=== PATIENT | female | born 2000 | race Caucasian/White ===

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

== ENCOUNTER 2022-01-30 06:00 | Outpatient (RCR) | payer BC, SELFPAY | END 2022-02-11 23:59 | disposition home or self-care (01) | LOC: SPT 06:00 | PROVIDERS: PCP Nurse Practitioner Family; Visit Provider Internal Medicine Rheumatology | DX: M41.9 Scoliosis, unspecified (principal); M54.9 Dorsalgia, unspecified; G89.29 Other chronic pain; M19.90 Unspecified osteoarthritis, unspecified site | CPT/HCPCS: 97110; 97161 ==

== ENCOUNTER 2022-02-12 06:00 | Outpatient (RCR) | payer BC, SELFPAY | END 2022-03-03 23:59 | disposition home or self-care (01) | LOC: SPT 06:00 | PROVIDERS: PCP Nurse Practitioner Family; Visit Provider Internal Medicine Rheumatology | DX: M41.9 Scoliosis, unspecified (principal); M54.9 Dorsalgia, unspecified; G89.29 Other chronic pain; M19.90 Unspecified osteoarthritis, unspecified site | CPT/HCPCS: 97110 ==

== ENCOUNTER 2022-12-20 18:07 | Outpatient (CLI) | payer SELFPAY | END 2022-12-20 18:08 | disposition home or self-care (01) | PROVIDERS: Visit Provider Emergency Medicine | DX: K80.50 Calculus of bile duct without cholangitis or cholecystitis without obstruction (principal) | CPT/HCPCS: 87045; 87427; 87449 ==

== ENCOUNTER 2022-12-21 14:30 | Emergency (ER) | payer SELFPAY ==
[2022-12-21 14:36] VITALS: BP 139/79; PULSE 86; RESP 17; TEMP 36.6; O2SAT 100; BMI 36.2
--- NOTE | 2022-12-21 14:48 | W.ED.ABDPA2 ---
HPI - Abdominal Pain General: Chief Complaint: Abdominal Pain Stated Complaint: right sided abdominal pain Time Seen by Provider: 12/21/22 14:42 Source: patient Mode of arrival: ambulatory Limitations: no limitations History of Present Illness: Patient is a 22-year-old female presents to ED today with complaint of right upper quadrant abdominal pain. Patient states approximately 6 days ago she thought she had a GI bug she was feeling nauseous and had multiple episodes of vomiting. She states this has improved but over the past 2 days noticed light-colored stools which concerned her. She reportedly was seen at a walk-in clinic yesterday and had lab work ordered but states she was not able to complete this. She states around 7 AM this morning she noticed right upper quadrant abdominal pain. He has not had any fevers. She is no longer vomiting. She has not noticed any yellowing to her skin or eyes. She states she does have a family history of gallbladder disease. Denies flank pain or urinary symptoms. MD elicited complaint: abdominal pain Pertinent past history: none Onset (ago): hour(s) Pain Consistency: constant Location: RUQ Severity: moderate Quality: sharp Radiation: back Migration to: no migration Exacerbating factors: nothing Relieving factors: nothing Associated Symptoms: Reports nausea and vomiting; Denies chills, constipation, GI cramping, diarrhea, dysuria, fever(s), hematochezia, hematemesis and melena Related Data: Patient : No Review of Systems Const: Denies: fever(s), chills, body aches, fatigue or malaise Card: Denies: chest pain Resp: Denies: dyspnea GI: Reports: abdominal pain, nausea, vomiting and white/light colored stool; Denies: hematemesis, diarrhea, constipation, GI cramping, rectal swelling, rectal itching, hematochezia, melena or mucus in stool : Denies: flank pain, difficulty voiding, dysuria, urinary frequency, urinary urgency or urinary hesitancy Musc: Denies: neck pain, back pain, extremity pain or joint pain Skin/Breast: Denies: rash Neuro: Denies: headache(s), numbness in extremities, weakness in extremities, sensory changes or dizziness PFS ED PFSH: Medical History Allergies Chronic low back pain DJD (degenerative joint disease) of thoracic spine Dysthymic disorder Elevated C-reactive protein Inflammatory back pain Joint pain Panic disorder [episodic paroxysmal anxiety] Primary osteoarthritis of knees, bilateral Scoliosis Surgical History History of placement of ear tubes Family History Grandmother Hypercholesteremia Other Diabetes Hypertension Stroke Denies family history of Colon cancer Ovarian cancer Heart disease Breast cancer Uterine cancer Thyroid disease Social History Smoking and tobacco status: never smoked Second hand smoke exposure: Yes Female Reproductive History: Spontaneous abortions: No Physical Exam Const: COMMON NORMALS: no acute distress, patient oriented x3, no limitations, alert and well nourished GENERAL APPEARANCE: cooperative NUTRITIONAL APPEARANCE: obese ORIENTATION/CONSCIOUSNESS: Yes awake, Yes oriented to place and Yes oriented to time HENMT: COMMON NORMALS: normocephalic and atraumatic HEAD & SCALP: normocephalic and atraumatic Eye: COMMON NORMALS: no scleral icterus Neck/C-Spine: COMMON NORMALS: full ROM, no lymphadenopathy, supple and no meningeal signs Chest: COMMONS NORMALS: normal inspection of the chest Resp: COMMON NORMALS: normal respiratory effort and clear to auscultation bilaterally AUSCULTATION: clear to auscultation bilaterally Cardio: COMMON NORMALS: regular rate and regular rhythm RATE: regular rate RHYTHM: regular rhythm GI: COMMON NORMALS: Normal to inspection, nondistended, normoactive bowel sounds present, Soft to palpation, No hepatosplenomegaly present and no masses INSPECTION: Yes normal to inspection AUSCULTATION: Yes normoactive bowel sounds PALPATION: Yes Soft to palpation, Yes Tenderness to palpation present (GI) Details: RUQ, No Guarding due to palpation present (GI), No Rigid due to palpation and Yes No hepatosplenomegaly present : COMMON NORMALS: Yes no CVA tenderness BLADDER/KIDNEY EXAM: Yes no CVA tenderness Back/Pelvis: COMMON NORMALS: no CVA tenderness and thoracic and lumbar spine normal to inspection Extremity: COMMON NORMALS: normal to inspection GENERAL: Yes normal exam except as noted Neuro: TERESA COMA SCALE: document GCS findings [place] coma scale eye opening: Spontaneous [place] coma scale verbal response: Orientated [place] coma scale motor response: Obey commands [place] coma scale total score: 15 COMMON NORMALS: patient oriented x3, moves all extremities, no focal motor deficits and no sensory deficits noted SENSORIUM/ORIENTATION: Yes alert, Yes oriented to place and Yes oriented to time MENINGEAL SIGNS: Yes no meningeal signs Skin: COMMON NORMALS: no rashes or lesions noted GENERAL SKIN EXAM: no rashes or lesions noted Course Vital Signs: Vital signs: Vital Signs Temperature 97.9 F 12/21/22 14:36 Pulse Rate 86 12/21/22 14:36 Respiratory Rate 17 12/21/22 14:36 Blood Pressure 139/79 12/21/22 14:36 Pulse Oximetry 100 12/21/22 14:36 Oxygen Delivery Me thod Room Air 12/21/22 14:36 MDM - Abdominal Pain Medical Decision Making Patient arrives with stable vital signs. Her blood work shows a normal white count. Her LFTs including her T. bili are normal. Lipase is normal. Mildly low hypokalemia at 3.2. She was given supplementation for this. Her gallbladder ultrasound is normal. Mild hepatomegaly. At this time she is stable to follow-up with her primary care provider on as scheduled. She states she did get some relief from her GI cocktail. She states she takes famotidine twice daily. Recommend she discuss with them about potentially adding a PPI and/or outpatient HIDA scan if they feel indicated. Return ED precautions given. Lab Data 12/21/22 15:24 12/21/22 15:24 Labs/Radiology: Laboratory Results WBC 6.90 10^3/uL (4.5-13.0) 12/21/22 15:24 RBC 4.17 10^6/uL (3.85-5.65) 12/21/22 15:24 Hgb 12.80 g/dL (12.4-14.8) 12/21/22 15:24 Hct 37.7 % (36-47) 12/21/22 15:24 MCV 90.4 fl (85-98) 12/21/22 15:24 MCH 30.7 pg (27-33) 12/21/22 15:24 MCHC 34.0 g/dL (30-55) 12/21/22 15:24 RDW 11.9 % (12.1-15.1) L 12/21/22 15:24 Plt Count 246 10^3/cmm (157-399) 12/21/22 15: MPV 10.0 fL (7.4-10.4) 12/21/22 15:24 Neut % (Auto) 59.8 % 12/21/22 15:24 Lymph % (Auto) 31.7 % 12/21/22 15:24 [place] % (Auto) 6.5 % 12/21/22 15:24 Eos % (Auto) 1.3 % 12/21/22 15:24 Baso % (Auto) 0.3 % 12/21/22:24 Neut # (Auto) 4.12 10^3/uL (1.8-8.0) 12/21/22:24 Lymph # (Auto) 2.2 10^3/uL (1.5-6.5) 12/21/22:24 [place] # (Auto) 0.5 10^3/uL (0.2-0.9) 12/21/22:24 Eos # (Auto) 0.1 10^3/uL (0.0-0.8) 12/21/22 15:24 Baso # (Auto) 0.0 10^3/uL (0.0-0.1) 12/21/22 15:24 Nucleated RBC % (auto) 0 % 12/21/22 15: Nucleated RBCs # 0.0 /100WBC 12/21/22 15:24 Sodium 137 mmol/L (136-145) 12/21/22 15:24 Potassium 3.2 mmol/L (3.5-5.1) L 12/21/22 15:24 Chloride 103 mmol/L (98-107) 12/21/22 15:24 Carbon Dioxide 24 mmol/L (22-29) 12/21/22 15:24 Anion Gap 13.2 (5-19) 12/21/22 15:24 BUN 7 mg/dL (6-20) 12/21/22 15:24 Creatinine 0.6 mg/dL (0.5-0.9) 12/21/22 15:24 GFR Calculation 127.5 mL/min (90-130) 12/21/22 15:24 Glucose 83 mg/dL (65-115) 12/21/22 15:24 Calculated Osmolality 281 mOsm/kg (285-295) L 12/21/22 15:24 Calcium 9.4 mg/dL (8.5-10.5) 12/21/22 15:24 Total Bilirubin 0.2 mg/dL (0.15-1.2) 12/21/22 15:24 AST 19 U/L (0-32) 12/21/22 15:24 ALT 28 U/L (0-33) 12/21/22 15:24 Alkaline Phosphatase 70 U/L (35-105) 12/21/22 15:24 Total Protein 6.8 g/dL (6.6-8.7) 12/21/22 15:24 Albumin 4.4 g/dL (3.5-5.2) 12/21/22 15:24 Globulin 2.4 g/dL (1.3-4.6) 12/21/22 15:24 Lipase 31 U/L (13-60) 12/21/22 15:24 HCG, Qual Negative (Negative) 12/21/22 15:24 Urine Color Yellow (Yellow) 12/21/22 16:09 Urine Appearance Clear (CLEAR) 12/21/22 16:09 Urine pH 5 (5-7) 12/21/22 16:09 Ur Specific [place] 1.010 (1.005-1.030) 12/21/22 16:09 Urine Protein Neg (Negative) 12/21/22 16:09 Urine Glucose (UA) Norm (Normal) 12/21/22 16:09 Urine Ketones Negative (Negative) 12/21/22 16:09 Urine Blood Neg (Negative) 12/21/22 16:09 Urine Nitrate Negative (Negative) 12/21/22 16:09 Urine Bilirubin Neg (Negative) 12/21/22 16:09 Urine Urobilinogen Norm mg/dL (Negative) 12/21/22 16:09 Ur Leukocyte Esterase Negative (Negative) 12/21/22 16:09 All radiology interpretation(s) finalized by discharge Discharge Plan Discharge Patient Disposition: Home Clinical Impression: Abdominal pain, RUQ Condition: Stable Prescriptions: No Action famotidine 20 mg tablet 20 mg PO BID Aviane 0.1-20 mg-mcg tablet 1 tab PO QAM spironolactone 25 mg tablet 25 mg PO QAM Discharge Orders: Discharge ED (Routine); Ordered 12/21/22 Ordered By: Lynsey Rapp Patient Instructions: Abdominal Pain (ED) Activity Restrictions/Additional Instructions: As we discussed please follow-up with your primary care provider on for further evaluation. This may include adding something else to your famotidine and/or HIDA scan imaging for further evaluation of your right upper quadrant abdominal pain. They may opt to treat conservatively with a watch and wait approach if symptoms are improving. Your blood work today was reassuring. You need to return to the emergency department for severe abdominal pain, repetitive episodes of vomiting, fevers, yellowing to your skin or eyes, or generally feeling worse or unwell, or any other concerns you may have. I hope you begin to feel better soon. Coding Level of Care Code ED Senior Maintenance Technician for Jhonny Newman
--- NOTE | 2022-12-21 15:11 | US_ITS ---
WS: [id number] RIGHT UPPER QUADRANT ULTRASOUND HISTORY: RUQ pain COMPARISON: None available. Liver: 18.2 cm in length. Liver is slightly enlarged. No mass or hepatic steatosis. Normal bile ducts . Portal Vein: Normal hepatopetal flow with monophasic waveform. Gallbladder: Normally distended gallbladder with no stones or wall thickening. CBD: 0.3 cm Pancreas: Normal size and echogenicity. Right kidney: 10.4 cm in length. Normal size and echogenicity. No hydronephrosis or mass. Aorta and IVC: Unremarkable abdominal aorta and IVC. No ascites. IMPRESSION: 1. Mild hepatomegaly. 2. Otherwise RIGHT upper quadrant ultrasound is negative.
[2022-12-21 15:28] LABS: Basophils % 0.3 %; Eosinophils # 0.1 10^3/uL (0.0-0.8); Eosinophils % 1.3 %; Hematocrit 37.7 % (36-47); Lymphocytes # 2.2 10^3/uL (1.5-6.5); Lymphocytes % 31.7 %; Mean Corpuscular Hemoglobin 30.7 pg (27-33); Mean Corpuscular Volume 90.4 fl (85-98); Monocytes # 0.5 10^3/uL (0.2-0.9); Monocytes % 6.5 %; Neutrophils # 4.12 10^3/uL (1.8-8.0); Neutrophils % 59.8 %; Nucleated Red Blood Cells % 0 %; Platelet Count 246 10^3/cmm (157-399); Red Blood Count 4.17 10^6/uL (3.85-5.65); Red Cell Distribution Width 11.9 % (12.1-15.1)
[2022-12-21 15:47] LABS: Alanine Aminotransferase 28 U/L (0-33); Albumin Level 4.4 g/dL (3.5-5.2); Alkaline Phosphatase 70 U/L (35-105); Anion Gap 13.2 (5-19); Aspartate Amino Transferase 19 U/L (0-32); Blood Urea Nitrogen 7 mg/dL (6-20); Calcium 9.4 mg/dL (8.5-10.5); Carbon Dioxide 24 mmol/L (22-29); Chloride 103 mmol/L (98-107); Globulin 2.4 g/dL (1.3-4.6); Glomerular Filtration Rate 127.5 mL/min (90-130); Glucose 83 mg/dL (65-115); Lipase 31 U/L (13-60); Osmolality Calculated 281 mOsm/kg (285-295); Potassium 3.2 mmol/L (3.5-5.1); Sodium 137 mmol/L (136-145); Total Bilirubin 0.2 mg/dL (0.15-1.2); Total Protein 6.8 g/dL (6.6-8.7)
[2022-12-21 15:57] LABS: HCG, Serum Qual Negative (Negative)
[2022-12-21 16:15] LABS: Add Urine Microscopic? NO; Charge for UA Resulting for Rev
[2022-12-21] MEDS: lidocaine 2% viscous 15 ML, aluminum-mag hydrox-simethicon 30 ML, sucralfate oral liq 1 GM PO (16:16)
[2022-12-21 16:31] LABS: Urine Appearance Clear (CLEAR); Urine Color Yellow (Yellow)
[2022-12-21 16:32] LABS: Bilirubin Urine Neg (Negative); Blood Urine Neg (Negative); Glucose Urine UA Norm (Normal); Ketones Urine Negative (Negative); Leukocyte Esterase Urine Negative (Negative); Nitrate Urine Negative (Negative); Protein Urine Neg (Negative); Urobilinogen Urine Norm (Negative); pH Urine 5 (5-7)
[2022-12-21] MEDS: potassium chloride ER 20 mEq Tablet 40 MEQ PO (16:37)
--- NOTE | 2022-12-21 16:41 | PC.NURSE ---
Patient states that her pain is better after the GI cocktail, she is maybe at a 2 out of 10 now.
== END 2022-12-21 16:59 | disposition home or self-care (01) ==
PROVIDERS: Emergency Medicine; Emergency Provider Physician Assistant
DX: R10.11 Right upper quadrant pain (principal); Z77.22 Contact with and (suspected) exposure to environmental tobacco smoke (acute) (chronic)
CPT/HCPCS: 36415; 76705; 80053; 81003; 83690; 84703; 85025; 99284

== ENCOUNTER → 2023-01-14 14:11 | Outpatient (BNVA) | payer SELFPAY | PROVIDERS: Visit Provider Nurse Practitioner Family | DX: E87.6 Hypokalemia (principal) | CPT/HCPCS: 80048 ==

== ENCOUNTER → 2023-05-26 14:43 | Outpatient (BNVA) | payer BC, SELFPAY | PROVIDERS: Visit Provider Nurse Practitioner Women's Health | DX: E28.2 Polycystic ovarian syndrome (principal) | CPT/HCPCS: 83036; 83525; 84146; 84402; 84439; 84443; 84481 ==

== ENCOUNTER 2023-07-05 08:33 | Emergency (ER) | payer OTHER, SELFPAY ==
[2023-07-05 08:37] VITALS: BP 121/73; PULSE 83; RESP 17; TEMP 36.7; O2SAT 100; BMI 35.9
--- NOTE | 2023-07-05 08:45 | ECG_ITS ---
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 Measurements Intervals [place] Rate: 78 P: 56 VT: 153 QRS: 70 QRSD: 98 T: 39 QT: 391 QTc: 447 Interpretive Statements SINUS RHYTHM No previous ECG available for comparison Electronically Signed On 07-05-2023 15:02:59 CDT by Steve Thurman M.D. [id number] f
--- NOTE | 2023-07-05 08:45 | XR_ITS ---
WS: [id number] PORTABLE CHEST HISTORY: dyspnea/cough COMPARISON: None available. Lungs are clear and well expanded. No pleural effusion or pneumothorax. Cardiac size: Normal. Mediastinum/Aorta: Normal mediastinum. No osseous abnormality seen. IMPRESSION: Unremarkable portable chest.
[2023-07-05 08:51] VITALS: BP 121/73; PULSE 83; O2SAT 98
[2023-07-05] MEDS: lidocaine 2% viscous 15 ML, aluminum-mag hydrox-simethicon 30 ML, sucralfate oral liq 1 GM PO (09:04)
--- NOTE | 2023-07-05 09:23 | W.ED.CHESTPA ---
HPI - Chest Pain General: Chief Complaint: Chest Pain Stated Complaint: chest pain Time Seen by Provider: 07/05/23 08:44 Source: patient Mode of arrival: ambulatory History of Present Illness: 22-year-old female presents emergency room complaining of chest discomfort and burning discomfort in her upper left chest slightly more noticeable when she takes a deep breath but somewhat persistent seems to be somewhat positional and that if she in a particular position it is less uncomfortable she has had some GI symptoms earlier this week with diarrhea and bloating that has persisted. No shortness of breath no cough no hemoptysis no history of arrhythmias or DVT or PE. No history of any early cardiac disease. MD complaint: chest pain Onset (ago): hour(s) Timing of current episode: episodic Onset: during rest Pain location: left chest Pain radiation: none Relieving factors: other (position) Exacerbating factors: palpation Associated symptoms: Deny abdominal pain, diaphoresis, dyspnea, fever(s), leg edema, nausea, palpitations, sense of impending doom, syncope or vomiting Treatment prior to arrival: none Review of Systems Const: Denies: fever(s) or diaphoresis Card: Reports: chest pain; Denies: palpitations or syncope Resp: Denies: dyspnea GI: Denies: abdominal pain, nausea or vomiting : Denies: dysuria, urinary frequency or urinary urgency Musc: Denies: neck pain or back pain Skin/Breast: Denies: rash PFSH ED PFSH: Medical History Chronic low back pain Scoliosis DJD (degenerative joint disease) of thoracic spine Allergies Joint pain Elevated C-reactive protein Primary osteoarthritis of knees, bilateral Inflammatory back pain Panic disorder [episodic paroxysmal anxiety] Dysthymic disorder Surgical History History of placement of ear tubes Family History Grandmother Hypercholesteremia Other Diabetes Hypertension Stroke Denies family history of Colon cancer Ovarian cancer Heart disease Breast cancer Uterine cancer Thyroid disease Social History Smoking and tobacco/nicotine status: never used tobacco/nicotine Second hand smoke exposure: Yes Alcohol intake: never Substance/Drug Use: current Substance/Drug use frequency: few times a week Female Reproductive History: Date of last menstrual period: 06/21/23 Spontaneous abortions: No Physical Exam Const: GENERAL APPEARANCE: cooperative and comfortable ORIENTATION/CONSCIOUSNESS: Yes awake, Yes oriented to person, Yes oriented to place and Yes oriented to time HENMT: COMMON NORMALS: normocephalic, atraumatic and hearing grossly normal bilaterally HEAD & SCALP: normocephalic and atraumatic Chest: OTHER: Pain with palpation of the left upper chest parasternal Resp: COMMON NORMALS: normal respiratory effort, No retractions, No use of accessory muscles and clear to auscultation bilaterally AUSCULTATION: clear to auscultation bilaterally Cardio: COMMON NORMALS: regular rate, regular rhythm and No murmurs present (Cardio) RATE: regular rate RHYTHM: regular rhythm GI: COMMON NORMALS: Soft to palpation and No hepatosplenomegaly present AUSCULTATION: Yes normoactive bowel sounds PALPATION: Yes Soft to palpation, No Tenderness to palpation present (GI), No Guarding due to palpation present (GI) and Yes No hepatosplenomegaly present Extremity: COMMON NORMALS: normal to inspection, capillary refill normal, no clubbing, cyanosis or edema, no calf tenderness and no pedal edema Neuro: SENSORIUM/ORIENTATION: Yes oriented to person, Yes oriented to place and Yes oriented to time Skin: COMMON NORMALS: no rashes or lesions noted GENERAL SKIN EXAM: no rashes or lesions noted Course Vital Signs: Vital signs: Vital Signs Temperature 98.1 F 07/05/23 08:37 Pulse Rate 66 07/05/23 12:13 Respiratory Rate 17 07/05/23 08:37 Blood Pressure 113/60 07/05/23 12:13 Pulse Oximetry 99 07/05/23 12:13 Oxygen Delivery Me thod Room Air 07/05/23 12:13 MDM - Chest Pain Medical Decision Making Labs and imaging reviewed EKG did not show any acute ST changes normal sinus rhythm. Reviewed as found in the chart. Chest x-ray normal vital signs of normal patient bradycardic not been hypoxic no sign of pneumonia or pneumothorax D-dimer undetectable given her vitals history of symptoms very low suspicion of PE. Suspect this more musculoskeletal or pleuritic in nature patient given diclofenac promethazine use. Follow-up as needed Medical Records I reviewed the patient's medical records. Lab Data I reviewed the patient's lab results. 07/05/23 09:16 07/05/23 09:16 Laboratory Results WBC 6.07 10^3/uL (4.5-13.0) 07/05/23 09:16 RBC 4.73 10^6/uL (3.85-5.65) 07/05/23 09:16 Hgb 14.50 g/dL (12.4-14.8) 07/05/23 09:16 Hct 42.7 % (36-47) 07/05/23 09:16 MCV 90.3 fl (85-98) 07/05/23 09:16 MCH 30.7 pg (27-33) 07/05/23 09:16 MCHC 34.0 g/dL (30-55) 07/05/23 09:16 RDW 11.5 % (12.1-15.1) L 07/05/23 09:16 Plt Count 300 10^3/cmm (157-399) 07/05/23 09:16 MPV 10.0 fL (7.4-10.4) 07/05/23 09:16 Neut % (Auto) 64.3 % 07/05/23 09:16 Lymph % (Auto) 27.7 % 07/05/23 09:16 [place] % (Auto) 6.3 % 07/05/23 09:16 Eos % (Auto) 0.7 % 07/05/23 09:16 Baso % (Auto) 0.3 % 07/05/23 09:16 Neut # (Auto) 3.91 10^3/uL (1.8-8.0) 07/05/23 09:16 Lymph # (Auto) 1.7 10^3/uL (1.5-6.5) 07/05/23 09:16 [place] # (Auto) 0.4 10^3/uL (0.2-0.9) 07/05/23 09:16 Eos # (Auto) 0.0 10^3/uL (0.0-0.8) 07/05/23 09:16 Baso # (Auto) 0.0 10^3/uL (0.0-0.1) 07/05/23 09:16 Nucleated RBC % (auto) 0 % 07/05/23 09:16 Nucleated RBCs # 0.0 /100WBC 07/05/23 09:16 D-Dimer <= 0.27 ug/mLFEU (0-0.59) 07/05/23 09:16 Sodium 137 mmol/L (136-145) 07/05/23 09:16 Potassium 4.7 mmol/L (3.5-5.1) 07/05/23 09:16 Chloride 103 mmol/L (98-107) 07/05/23 09:16 Carbon Dioxide 23 mmol/L (22-29) 07/05/23 09:16 Anion Gap 15.7 (5-19) 07/05/23 09:16 BUN 7 mg/dL (6-20) 07/05/23 09:16 Creatinine 0.6 mg/dL (0.5-0.9) 07/05/23 09:16 GFR Calculation 127.5 mL/min (90-130) 07/05/23 09:16 Glucose 95 mg/dL (65-115) 07/05/23 09:16 Calculated Osmolality 282 mOsm/kg (285-295) L 07/05/23 09:16 Calcium 9.9 mg/dL (8.5-10.5) 07/05/23 09:16 Total Bilirubin 0.3 mg/dL (0.15-1.2) 07/05/23 09:16 AST 19 U/L (0-32) 07/05/23 09:16 ALT 27 U/L (0-33) 07/05/23 09:16 Alkaline Phosphatase 71 U/L (35-105) 07/05/23 09:16 Troponin T Baseline < 6 ng/L (0-10) 07/05/23 09:16 Troponin T 120 Minute 6.00 ng/L (0-10) 07/05/23 11:12 Delta Troponin T 0.05860 ABS# (0-10) 07/05/23 11:12 Total Protein 7.7 g/dL (6.6-8.7) 07/05/23 09:16 Albumin 4.5 g/dL (3.5-5.2) 07/05/23 09:16 Globulin 3.2 g/dL (1.3-4.6) 07/05/23 09:16 All radiology interpretation(s) finalized by discharge Discharge Plan Discharge Patient Disposition: Home Clinical Impression: Atypical chest pain Condition: Stable Prescriptions: New promethazine 25 mg tablet 25 mg PO Q6H PRN (Reason: nausea and vomiting) Qty: 20 0RF diclofenac sodium 75 mg tablet,delayed release (DR/EC) 75 mg PO Q12H PRN (Reason: pain) Qty: 20 0RF No Action drospirenone-ethinyl estradiol [Erna (28)] 3-0.03 mg tablet 1 tab PO DAILY Qty: 28 2RF Discharge Orders: Discharge ED (Routine); Ordered 07/05/23 Ordered By: Feliz Hill Discharge Diet: Usual diet Discharge Activity: Increase activity as tolerated Patient Instructions: Opioid Safety, Pain Management Activity Restrictions/Additional Instructions: Thank you for choosing [facility] for your healthcare needs today. Please realize this is an emergency room and that we are providing you with a medical screening exam and this may not be complete and all inclusive of all the testing and or work up that you may need to determine your ailment or severity of your illness. It is very important that you follow up as instructed or that you return to the Emergency Department should you have concerns or if your condition changes or worsens in any way. You were seen today for report of chest discomfort. Your EKGs and cardiac enzymes were negative. There is no sign of this being a cardiac related issue. A screening for pulmonary embolism was also negative as well as your vitals not being suggestive of pulmonary embolism. There is no sign of pneumonia rib fracture pneumothorax or other abnormality in the chest. Suspect this is musculoskeletal or pleuritic related. You are given prescription to use as needed for symptoms. Follow-up with your primary care doctor if symptoms persist. Coding Level of Care Code ED Business Center Manager for Jhonny Newman
[2023-07-05 09:26] LABS: Basophils % 0.3 %; Eosinophils % 0.7 %; Hematocrit 42.7 % (36-47); Lymphocytes # 1.7 10^3/uL (1.5-6.5); Lymphocytes % 27.7 %; Mean Corpuscular Hemoglobin 30.7 pg (27-33); Mean Corpuscular Volume 90.3 fl (85-98); Monocytes # 0.4 10^3/uL (0.2-0.9); Monocytes % 6.3 %; Neutrophils # 3.91 10^3/uL (1.8-8.0); Neutrophils % 64.3 %; Nucleated Red Blood Cells % 0 %; Platelet Count 300 10^3/cmm (157-399); Red Blood Count 4.73 10^6/uL (3.85-5.65); Red Cell Distribution Width 11.5 % (12.1-15.1); White Blood Count 6.07 10^3/uL (4.5-13.0)
[2023-07-05 09:40] VITALS: BP 125/77; PULSE 71; O2SAT 97
[2023-07-05 09:43] LABS: Alanine Aminotransferase 27 U/L (0-33); Albumin Level 4.5 g/dL (3.5-5.2); Alkaline Phosphatase 71 U/L (35-105); Anion Gap 15.7 (5-19); Aspartate Amino Transferase 19 U/L (0-32); Blood Urea Nitrogen 7 mg/dL (6-20); Calcium 9.9 mg/dL (8.5-10.5); Carbon Dioxide 23 mmol/L (22-29); Chloride 103 mmol/L (98-107); Creatinine Clr Calc Pharmacy 173.2829; Globulin 3.2 g/dL (1.3-4.6); Glomerular Filtration Rate 127.5 mL/min (90-130); Glucose 95 mg/dL (65-115); Osmolality Calculated 282 mOsm/kg (285-295); Potassium 4.7 mmol/L (3.5-5.1); Sodium 137 mmol/L (136-145); Total Bilirubin 0.3 mg/dL (0.15-1.2); Total Protein 7.7 g/dL (6.6-8.7)
[2023-07-05 10:46] VITALS: BP 111/62; PULSE 68; O2SAT 98
[2023-07-05 11:25] LABS: Troponin(5th) Baseline < 6 ng/L (0-10)
[2023-07-05 11:41] LABS: Troponin 5 2HR Delta 0.00001 ABS# (0-10)
[2023-07-05 12:13] VITALS: BP 113/60; PULSE 66; O2SAT 99
[2023-07-05] MEDS: ketorolac 60 mg/2 mL INJ IM (12:25)
[2023-07-05 12:49] LABS: D Dimer <= 0.27 ug/mLFEU (0-0.59)
[2023-07-05 13:04] VITALS: BP 106/62; PULSE 54; O2SAT 98
== END 2023-07-05 13:05 | disposition home or self-care (01) ==
PROVIDERS: Emergency Provider Family Medicine
DX: R07.89 Other chest pain (principal); Z77.22 Contact with and (suspected) exposure to environmental tobacco smoke (acute) (chronic)
CPT/HCPCS: 36415; 71045; 80053; 84484; 85025; 85378; 93005; 96372; 99285; J1885

== ENCOUNTER 2023-12-24 19:50 | Emergency (ER) | payer BC, SELFPAY ==
--- NOTE | 2023-12-24 19:53 | ECG_ITS ---
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 Measurements Intervals [place] Rate: 88 P: 43 DC: 149 QRS: 28 QRSD: 105 T: 39 QT: 370 QTc: 450 Interpretive Statements SINUS RHYTHM No previous ECG available for comparison Electronically Signed On 12-24-2023 22:33:21 CDT by Spencer Haddad M.D. [id number]
[2023-12-24 19:59] VITALS: BP 140/107; PULSE 97; RESP 16; TEMP 36.9; O2SAT 97
--- NOTE | 2023-12-24 20:07 | XRR_ITS ---
PROCEDURE INFORMATION: Exam: XR Chest Exam date and time: 12/24/2023 11:15 PM Age: 23 years old Clinical indication: Chest pressure; Patient HX: Chest pain; Bradycardia; Fluctuating BP TECHNIQUE: Imaging protocol: Radiologic exam of the chest. Views: 1 view. COMPARISON: CR XR chest 1V portable [id number] 07/05/2023 8:52 AM FINDINGS: Lungs: No consolidation. Pleural spaces: No large pleural effusion. No pneumothorax. Heart/Mediastinum: Unremarkable. No cardiomegaly. Bones/joints: No acute abnormality. XR/XR chest 1V portable [id number] IMPRESSION: No acute findings.
[2023-12-24 20:56] LABS: Basophils % 0.5 %; Eosinophils # 0.1 10^3/uL (0.0-0.8); Eosinophils % 1.6 %; Hematocrit 41.3 % (36-47); Lymphocytes # 2.5 10^3/uL (0.8-4.8); Lymphocytes % 39.6 %; Mean Corpuscular HGB Conc 32.9 g/dL (30-55); Mean Platelet Volume 9.6 fL (7.4-10.4); Monocytes # 0.5 10^3/uL (0.2-0.9); Monocytes % 8.1 %; Neutrophils # 3.14 10^3/uL (1.8-7.7); Nucleated Red Blood Cells % 0 %; Platelet Count 225 10^3/cmm (157-399); Red Blood Count 4.54 10^6/uL (3.85-5.65); Red Cell Distribution Width 12.1 % (12.1-15.1); White Blood Count 6.27 10^3/uL (3.29-11.43)
[2023-12-24 21:14] LABS: Troponin(5th) Baseline < 6 ng/L (0-10)
[2023-12-24 21:20] LABS: Anion Gap 12.6 (5-19); Blood Urea Nitrogen 6 mg/dL (6-20); Calcium 9.7 mg/dL (8.5-10.5); Carbon Dioxide 26 mmol/L (22-29); Chloride 109 mmol/L (98-107); Creatinine Clr Calc Pharmacy 130.1534; Glomerular Filtration Rate 90.5 mL/min (90-130); Glucose 96 mg/dL (65-115); Osmolality Calculated 295 mOsm/kg (285-295); Potassium 3.6 mmol/L (3.5-5.1); Sodium 144 mmol/L (136-145)
--- NOTE | 2023-12-24 22:07 | ECG_ITS ---
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 Measurements Intervals [place] Rate: 57 P: 36 IA: 155 QRS: 33 QRSD: 97 T: 39 QT: 441 QTc: 431 Interpretive Statements SINUS BRADYCARDIA WITH SINUS ARRHYTHMIA Compared to ECG 12/24/2023 19:53:02 Sinus rhythm no longer present Electronically Signed On 12-27-2023 14:18:02 CDT by Rodolfo Wall M.D. [id number]
[2023-12-24 23:22] LABS: Troponin 5 2HR Delta 0.00001 ABS# (0-10)
[2023-12-24 23:33] VITALS: BP 95/53; PULSE 89; RESP 16; O2SAT 98
--- NOTE | 2023-12-24 23:33 | ED_ITS ---
HPI - Chest Pain 2 General: Chief Complaint: Chest Pain Stated Complaint: CP Time Seen by Provider: 12/24/23 23:12 History of Present Illness: Patient arrives to the ER with intermittent left-sided pain has been going on since June. She been seen here at least once seen [facility] once in [place] at least once and she said her cardiac workups always been negative and they keep telling her it is inflammation but it gave her steroids, anti- inflammatories and hydrocodone but none of these seem to really help. Per review of the chart even had an echo and heart monitor. Related Data Previous Rx's Medication Instructions Recorded diclofenac sodium 75 mg 75 mg PO Q12H PRN pain #20 tabs 07/05/23 tablet,delayed release promethazine 25 mg tablet 25 mg PO Q6H PRN nausea and 07/05/23 vomiting #20 tabs drospirenone 3 mg-ethinyl See Rx Instructions .Route 12/07/23 estradiol 0.03 mg tablet .COMPLEX #28 tabs hydrocodone 5 mg-acetaminophen 325 1 tab PO Q4H PRN pain 5 days #20 12/10/23 mg tablet tabs prednisone 20 mg tablet 60 mg (3 x 20 mg) PO DAILY 5 days 12/10/23 #15 tabs Allergies Allergy/AdvReac Type Severity Reaction Status Date / Time latex Allergy Intermediate lau skin Verified 12/24/23 20:03 Penicillins Allergy Intermediate hives and Verified 12/24/23 20:03 swelling Review of Systems 2 General: Reports: 10 or more systems reviewed and unremarkable except in HPI and below PFSH ED 2 PFSH: Medical History Chronic low back pain Scoliosis DJD (degenerative joint disease) of thoracic spine Allergies Joint pain Elevated C-reactive protein Primary osteoarthritis of knees, bilateral Inflammatory back pain Panic disorder [episodic paroxysmal anxiety] Dysthymic disorder Surgical History History of placement of ear tubes Family History Grandmother Hypercholesteremia Other Diabetes Hypertension Stroke Denies family history of Colon cancer Ovarian cancer Heart disease Breast cancer Uterine cancer Thyroid disease Social History (Reviewed 12/10/23 @ 17:56 by MILAGROS Raymond Smoking and tobacco/nicotine status: unknown if used tobacco/nicotine Second hand smoke exposure: Yes Alcohol intake: never Substance/Drug Use: current Substance/Drug use frequency: few times a week Female Reproductive History: Spontaneous abortions: No Physical Exam 2 Const: COMMON NORMALS: no acute distress, average body habitus, patient oriented x3, no limitations, healthy appearing, alert and well nourished HENMT: COMMON NORMALS: normocephalic, atraumatic, hearing grossly normal bilaterally, external ears normal, Normal external nose present and moist oral mucous membranes HEAD & SCALP: normocephalic and atraumatic NOSE: Normal external nose present EXTERNAL EAR: Yes external ears normal Neck/C-Spine: COMMON NORMALS: full ROM, no lymphadenopathy, supple, no meningeal signs, no JVD and Thyroid normal THYROID: Thyroid normal Chest: COMMONS NORMALS: normal inspection of the chest and normal palpation of entire chest wall Resp: COMMON NORMALS: normal respiratory effort, No retractions, No use of accessory muscles and clear to auscultation bilaterally AUSCULTATION: clear to auscultation bilaterally Cardio: COMMON NORMALS: no JVD, regular rate, regular rhythm, S1 normal heart sound present, S2 normal heart sound present, No gallops present (Cardio), No clicks present (Cardio), No murmurs present (Cardio) and No rub (Cardio) R ATE: regular rate RHYTHM: regular rhythm HEART SOUNDS: S1 normal heart sound present and S2 normal heart sound present GI: COMMON NORMALS: Normal to inspection, nondistended, normoactive bowel sounds present, Soft to palpation, non-tender, No hepatosplenomegaly present and no masses PALPATION: Yes Soft to palpation and Yes No hepatosplenomegaly present Neuro: COMMON NORMALS: patient oriented x3 SENSORIUM/ORIENTATION: Yes alert MENINGEAL SIGNS: Yes no meningeal signs Course 2 Vital Signs: Vital signs: Vital Signs Temperature 98.4 F 12/24/23 19:59 Pulse Rate 89 12/24/23 23:33 Respiratory Rate 16 12/24/23 23:33 Blood Pressure 95/53 12/24/23 23:33 Pulse Oximetry 98 12/24/23 23:33 Oxygen Delivery Me thod Room Air 12/24/23 23:33 MDM - Chest Pain Medical Decision Making Patient was worked up in a standard chest pain fashion with serial EKGs, lab work, serial troponins, chest x-ray all of which were essentially benign. This felt patient's chest pain is noncardiac in nature. Patient be discharged home. Patient to follow-up with her PCP for further evaluation and testing. Medical Records I reviewed the patient's medical records. Lab Data I reviewed the patient's lab results. 12/24/23 20:49 12/24/23 20:49 Radiology Impressions Chest X-Ray 12/24/23 20:07 IMPRESSION: No acute findings. Laboratory Results WBC 6.27 10^3/uL (3.29-11.43) 12/24/23 20:49 RBC 4.54 10^6/uL (3.85-5.65) 12/24/23 20:49 Hgb 13.60 g/dL (11.27-16.99) 12/24/23 20:49 Hct 41.3 % (36-47) 12/24/23 20:49 MCV 91.0 fl (85-98) 12/24/23 20:49 MCH 30.0 pg (27-33) 12/24/23 20:49 MCHC 32.9 g/dL (30-55) 12/24/23 20:49 RDW 12.1 % (12.1-15.1) 12/24/23 20:49 Plt Count 225 10^3/cmm (157-399) 12/24/23 20:49 MPV 9.6 fL (7.4-10.4) 12/24/23 20:49 Neut % (Auto) 50.0 % 12/24/23 20:49 Lymph % (Auto) 39.6 % 12/24/23 20:49 [place] % (Auto) 8.1 % 12/24/23 20:49 Eos % (Auto) 1.6 % 12/24/23 20:49 Baso % (Auto) 0.5 % 12/24/23 20:49 Neut # (Auto) 3.14 10^3/uL (1.8-7.7) 12/24/23 20:49 Lymph # (Auto) 2.5 10^3/uL (0.8-4.8) 12/24/23 20:49 [place] # (Auto) 0.5 10^3/uL (0.2-0.9) 12/24/23 20:49 Eos # (Auto) 0.1 10^3/uL (0.0-0.8) 12/24/23 20:49 Baso # (Auto) 0.0 10^3/uL (0.0-0.1) 12/24/23 20:49 Nucleated RBC % (auto) 0 % 12/24/23 20:49 Nucleated RBCs # 0.0 /100WBC 12/24/23 20:49 Sodium 144 mmol/L (136-145) 12/24/23 20:49 Potassium 3.6 mmol/L (3.5-5.1) 12/24/23 20:49 Chloride 109 mmol/L (98-107) H 12/24/23 20:49 Carbon Dioxide 26 mmol/L (22-29) 12/24/23 20:49 Anion Gap 12.6 (5-19) 12/24/23 20:49 BUN 6 mg/dL (6-20) 12/24/23 20:49 Creatinine 0.8 mg/dL (0.5-0.9) 12/24/23 20:49 GFR Calculation 90.5 mL/min (90-130) 12/24/23 20:49 Glucose 96 mg/dL (65-115) 12/24/23 20:49 Calculated Osmolality 295 mOsm/kg (285-295) 12/24/23 20:49 Calcium 9.7 mg/dL (8.5-10.5) 12/24/23 20:49 Troponin T Baseline < 6 ng/L (0-10) 12/24/23 20:49 Troponin T 120 Minute 6.00 ng/L (0-10) 12/24/23 22:57 Delta Troponin T 0.59177 ABS# (0-10) 12/24/23 22:57 All radiology interpretation(s) finalized by discharge Discharge Plan Discharge Patient Disposition: Home Clinical Impression: Atypical chest pain Condition: Stable Prescriptions: No Action hydrocodone-acetaminophen 5-325 mg tablet 1 tab PO Q4H PRN (Reason: pain) 5 Days Qty: 20 0RF prednisone 20 mg tablet 60 mg PO DAILY 5 Days Qty: 15 0RF drospirenone-ethinyl estradiol 3-0.03 mg tablet See Rx Instructions .ROUTE .COMPLEX Qty: 28 0RF Dose Instruction: Take 1 tablet by mouth once daily Rx Instructions: Take 1 tablet by mouth once daily promethazine 25 mg tablet 25 mg PO Q6H PRN (Reason: nausea and vomiting) Qty: 20 0RF diclofenac sodium 75 mg tablet,delayed release (DR/EC) 75 mg PO Q12H PRN (Reason: pain) Qty: 20 0RF Discharge Orders: Discharge ED (Routine); Ordered 12/24/23 Ordered By: Obie Rodriguez Patient Instructions: Chest Pain - Noncardiac, Opioid Safety, Pain Management Activity Restrictions/Additional Instructions: Your evaluation ER including chest x-ray, lab work including cardiac enzymes, EKGs, did not reveal any acute cardiac cause of your chest pain. It is felt that your chest pain is noncardiac in nature. It may be inflammation as you have been told in the past. You may benefit from further evaluation and treatment. Please follow-up with your family practice physician for further evaluation and treatment. They may end up referring you to a wood heel flap inserter for definitive evaluation of your heart. Coding Level of Care Code ED [employer] Specialist for Jhonny Newman
[2023-12-25] MEDS: ketorolac 60 mg/2 mL INJ IM
== END 2023-12-25 00:26 | disposition home or self-care (01) ==
PROVIDERS: Emergency Provider Emergency Medicine
DX: R07.89 Other chest pain (principal)
CPT/HCPCS: 36415; 71045; 80048; 84484; 85025; 93005; 96372; 99285; J1885